=== PATIENT | male | born 1970 | race Caucasian/White ===

== ENCOUNTER 2022-06-23 03:59 | Emergency (ER) | payer MEDICAID ==
[~2022-06-23] VITALS: Ht 167.6 cm; Wt 100.0 kg
[2022-06-23 10:53] LABS: CHLORIDE 104 mEq/L (98-107)
[2022-06-23 11:24] LABS: EOSINOPHILS % 1.4 % (0.0-5.0); HEMATOCRIT. 45.2 % (42.0-52.0); HEMOGLOBIN. 15.7 g/dL (14.0-18.0); LYMPHOCYTES % 32.2 % (20.0-50.0); MEAN CORPUSCULAR HEMOGLOBIN 31.8 pg (28.0-32.0); MEAN CORPUSCULAR VOLUME 91.7 fL (80.0-94.0); MEAN PLATELET VOLUME 8.5 fl (7.4-10.4); MONOCYTES % 10.4 % (2.0-8.0); PLATELET 188 x1000/uL (130-400); RED BLOOD CELL COUNT 4.93 mill/uL (4.7-6.1); RED CELL DISTRIBUTION WIDTH 14.6 % (11.6-14.6)
[2022-06-23 12:00] VITALS: BP 121/79
[2022-06-23] MEDS ORDERED: CETI10CA2 MT (12:13)
[2022-06-23] MEDS ORDERED: OMEP40CA20 MT (12:14)
== END 2022-06-23 13:32 | disposition home or self-care (01) ==
LOC: ER 03:59
DX: R10.9 Unspecified abdominal pain (principal); R06.00 Dyspnea, unspecified; E11.9 Type 2 diabetes mellitus without complications; Z98.890 Other specified postprocedural states
CPT/HCPCS: 36415; 71045; 74176; 80053; 83880; 84484; 85025; 93005; 99285